=== PATIENT | female | born 1945 ===

== ENCOUNTER 2021-11-08 21:00 | Emergency (ER) | payer MEDICARE, OTHER ==
[~2021-11-08] VITALS: Ht 165.1 cm; Wt 86.5 kg
[2021-11-08 21:18] VITALS: BP 143/71
== END 2021-11-09 00:47 | disposition left against medical advice (07) ==
LOC: ER 21:01
DX: S61.219A Laceration without foreign body of unspecified finger without damage to nail, initial encounter (principal); Z53.21 Procedure and treatment not carried out due to patient leaving prior to being seen by health care provider; X58.XXXA Exposure to other specified factors, initial encounter; Y93.89 Activity, other specified; Y92.89 Other specified places as the place of occurrence of the external cause; Y99.8 Other external cause status